=== PATIENT | female | born 1960 | race Caucasian/White ===

== ENCOUNTER → 2020-07-31 15:01 | Outpatient (BNVA) | payer BC, SELFPAY | PROVIDERS: Family Provider Nurse Practitioner Family; PCP Nurse Practitioner Family; Visit Provider Nurse Practitioner Family | DX: N39.3 Stress incontinence (female) (male) (principal); B37.3 Candidiasis of vulva and vagina | CPT/HCPCS: 81000 ==

== ENCOUNTER 2020-11-12 08:23 | Outpatient (CLI) | payer BC, SELFPAY ==
--- NOTE | 2020-11-12 08:27 | US_ITS ---
WS: [id number] ULTRASOUND ABDOMEN LIMITED CLINICAL INFORMATION: RUQ PAIN COMPARISON: None. FINDINGS: Liver Size: Normal. Craniocaudal length: 16.5 cm. Echogenicity: Normal. Surface nodularity: None. Mass (size and location): None. Normal hepatopedal Flow in the main portal vein. Bile ducts Intrahepatic ducts: Normal. Common bile duct diameter: 0.5 cm. Gallbladder Present Gallstones: Present Gallbladder sludge: Present Gallbladder wall thickening: None. Pericholecystic fluid: None. Sonographic Reilly sign: Absent. Pancreas Normal as visualized. Right kidney: Normal. Hydronephrosis: None. Size: 9.9 cm x 3.7 cm x 3.4 cm. Abdominal aorta and IVC Visualized portions are normal. Ascites: None. US/US abdomen limited [id number] IMPRESSION: 1. Normal liver. 2. Cholelithiasis with gallbladder sludge. No gallbladder wall thickening or p ericholecystic fluid. 3. Normal common bile duct. 4. No hydronephrosis in right kidney.
== END 2020-11-12 08:24 | disposition home or self-care (01) ==
LOC: RAD 08:24
PROVIDERS: PCP Family Medicine; Visit Provider Physician Assistant
DX: R10.11 Right upper quadrant pain (principal); K80.80 Other cholelithiasis without obstruction
CPT/HCPCS: 76705

== ENCOUNTER 2020-11-20 10:47 | Outpatient (CLI) | payer OTHER, SELFPAY ==
--- NOTE | 2020-11-20 10:52 | MM_ITS ---
WS: [id number] Bilateral screening digital mammogram, 11/20/2020 Clinical Data: SCREENING Comparison: 09/17/2019, 10/27/2016, 10/03/2015, 11/09/2004, 11/02/2004. Findings: The breast parenchymal pattern shows heterogeneous density No spiculated masses or clustered calcific ations are seen. There are no secondary signs of carcinoma. There is a mole marker on the left breast . MM/[place] [id number] Impression: 1. Negative bilateral mammogram unchanged. 2. Recommend annual screening mammograms. BIRADS: 1-Negative FOLLOW UP: 1 Year Follow-up The CAD work checker was used.
== END 2020-11-20 10:48 | disposition home or self-care (01) ==
PROVIDERS: PCP Family Medicine; Visit Provider Family Medicine
DX: Z12.31 Encounter for screening mammogram for malignant neoplasm of breast (principal)
CPT/HCPCS: 77067

== ENCOUNTER 2022-03-09 14:50 | Outpatient (CLI) | payer OTHER, SELFPAY ==
--- NOTE | 2022-03-09 15:20 | MM_ITS ---
WS: [id number] Bilateral screening 3D tomosynthesis digital mammogram, 03/09/2022 Clinical Data: SCREENING Comparison: 11/20/2020, 09/17/2019, 10/27/2016, 10/03/2015, 11/09/2004, 11/02/2004. Findings: The breast parenchymal pattern shows heterogeneous density. No spiculated masses or clustered calcif ications are seen. There are no secondary signs of carcinoma. MM/[place] [id number] Impression: 1. Negative bilateral mammogram unchanged. 2. Recommend annual screening mammograms. BIRADS: 1-Negative FOLLOW UP: 1 Year Follow-up The CAD construction checker was used.
== END 2022-03-09 14:51 | disposition home or self-care (01) ==
LOC: RAD 14:59
PROVIDERS: PCP Family Medicine; Visit Provider Family Medicine
DX: Z12.31 Encounter for screening mammogram for malignant neoplasm of breast (principal)
CPT/HCPCS: 77063; 77067

== ENCOUNTER → 2022-08-11 09:30 | Outpatient (BNVA) | payer OTHER, SELFPAY | PROVIDERS: PCP Family Medicine; Visit Provider Family Medicine | DX: Z00.00 Encounter for general adult medical examination without abnormal findings (principal) | CPT/HCPCS: 80053; 80061; 84443; 85025 ==

== ENCOUNTER → 2022-09-02 08:24 | Outpatient (BNVA) | payer OTHER, SELFPAY | PROVIDERS: PCP Family Medicine; Visit Provider Family Medicine | DX: Z00.00 Encounter for general adult medical examination without abnormal findings (principal); D72.829 Elevated white blood cell count, unspecified; E87.6 Hypokalemia; E03.9 Hypothyroidism, unspecified; I10 Essential (primary) hypertension | CPT/HCPCS: 80048; 85025 ==

== ENCOUNTER → 2022-10-21 08:46 | Outpatient (BNVA) | payer OTHER, SELFPAY | PROVIDERS: PCP Family Medicine; Visit Provider Orthopaedic Surgery | DX: M54.9 Dorsalgia, unspecified (principal) | CPT/HCPCS: 72110 ==

== ENCOUNTER 2022-11-04 06:00 | Outpatient (RCR) | payer OTHER, SELFPAY | END 2022-11-13 23:59 | disposition home or self-care (01) | LOC: TPT 06:00 | PROVIDERS: PCP Family Medicine; Visit Provider Orthopaedic Surgery | DX: M54.9 Dorsalgia, unspecified (principal) | CPT/HCPCS: 97110; 97161 ==

== ENCOUNTER 2022-11-14 06:00 | Outpatient (RCR) | payer OTHER, SELFPAY | END 2022-12-09 16:32 | disposition home or self-care (01) | LOC: TPT 06:00 | PROVIDERS: PCP Family Medicine; Visit Provider Orthopaedic Surgery | DX: M54.50 Low back pain, unspecified (principal) | CPT/HCPCS: 97110 ==

== ENCOUNTER 2023-03-22 10:29 | Outpatient (CLI) | payer OTHER, SELFPAY ==
--- NOTE | 2023-03-22 10:45 | MM_ITS ---
WS: [id number] BILATERAL SCREENING DIGITAL TOMOSYNTHESIS MAMMOGRAM WITH CAD HISTORY: SCREENING COMPARISON: 03/09/2022, 11/20/2020 Bilateral CC and MLO views with tomosynthesis and synthetic mammography submitted. Computer aided det ection analyzed. Breast composition: The breasts are heterogeneously dense, which may obscure small masses. No suspici ous masses, microcalcifications or architectural distortion. Asymmetries are stable. No distortion. MM/[place] [id number] IMPRESSION: BI-RADS: 2-Benign FOLLOW UP: 1 Year Follow-up
== END 2023-03-22 10:30 | disposition home or self-care (01) ==
LOC: RAD 10:32
PROVIDERS: PCP Family Medicine; Visit Provider Family Medicine
DX: Z12.31 Encounter for screening mammogram for malignant neoplasm of breast (principal)
CPT/HCPCS: 77063; 77067

== ENCOUNTER → 2023-04-12 11:37 | Outpatient (BNVA) | payer OTHER, SELFPAY | PROVIDERS: PCP Family Medicine; Visit Provider Orthopaedic Surgery | DX: Z01.818 Encounter for other preprocedural examination (principal) | CPT/HCPCS: 36415; 80053; 85025 ==

== ENCOUNTER → 2023-04-13 12:48 | Outpatient (BNVA) | payer OTHER, SELFPAY | PROVIDERS: PCP Family Medicine; Referring Provider Anesthesiology Pain Medicine; Visit Provider Specialist | DX: G56.03 Carpal tunnel syndrome, bilateral upper limbs (principal); M65.331 Trigger finger, right middle finger | CPT/HCPCS: 73110 ==

== ENCOUNTER 2023-05-06 05:41 | Day surgery (SDC) | payer OTHER, SELFPAY ==
[2023-04-29 08:40] VITALS: BMI 26.9
--- NOTE | 2023-04-29 13:21 | P.ANESASSM_ITS ---
Pre-Anesthetic Assessment Height/Weight: Height 1.57 m Weight 66.678 kg Operation Date: 05/06/23 07:00 Proposed Procedures p LEFT L4/5 Minimally Invasive Lumbar Decompression:15550,M48.062(Left) - Levon Wright DO Social No alcohol and No tobacco Airway Submandibular: within normal limits Cervical ROM: within normal limits Mallampati: Class II CV/HEM Hypertension Metabolic Thyroid Disease Anesthetic Plan ASA status: 2 Anesthesia: General Medications/Allergies Home Medications Medication Instructions Recorded Confirmed Last Taken Type hydrochlorothiazide 25 mg tablet 25 mg PO DAILY #90 tabs 08/11/22 04/29/23 04/29/23 Rx levothyroxine 75 mcg tablet 75 mcg PO DAILY #90 tabs 08/11/22 04/29/23 04/29/23 Rx (Synthroid) oxybutynin chloride 5 mg tablet 10 mg PO DAILY #180 tabs 08/11/22 04/29/23 04/29/23 Rx tramadol 50 mg tablet 50 mg PO Q4H PRN pain #60 tabs 08/11/22 04/29/23 Unknown Rx hydrocodone 5 mg-acetaminophen 325 1 tab PO Q8H PRN pain 1 month #30 09/02/22 04/29/23 04/26/23 Rx mg tablet tabs clobetasol 0.05 % topical ointment 1 applic topical BID 2 weeks #45 12/22/22 04/29/23 Unknown Rx grams hydrocortisone 2.5 % topical 1 applic topical BID 3 weeks 12/22/22 04/29/23 Unknown Rx ointment #28.35 grams mupirocin 2 % topical ointment 1 applic topical BID #22 grams 12/22/22 04/29/23 Unknown Rx triamcinolone acetonide 0.1 % 1 applic topical BID #80 grams 12/22/22 04/29/23 Unknown Rx topical ointment celecoxib 200 mg capsule (Celebrex) 200 mg PO DAILY pain #30 caps 03/23/23 04/29/23 04/20/23 Rx tizanidine 4 mg tablet 4 mg PO BID PRN muscle spasticity 03/23/23 04/29/23 04/29/23 Rx #60 tabs losartan 100 mg tablet 100 mg PO DAILY 04/29/23 04/29/23 04/29/23 History tacrolimus 0.1 % topical ointment 1 applic topical DAILY 04/29/23 04/29/23 Unknown History Allergies Allergy/AdvReac Type Severity Reaction Status Date / Time atorvastatin [From Lipitor] AdvReac Intermediate cramps Verified 04/27/23 10:36 [facility] Anesthesia Medical History (Updated 04/27/23 @ 12:55 by Dillan Moss NP) Fibromyalgia Hyperlipidemia Hypertension Hypothyroid Urinary, incontinence, stress female Surgical History History of cholecystectomy Hx of bladder repair surgery Hx of section Hx of colonoscopy (~2011) normal Hx of hysterectomy Social History Smoking and tobacco status: former smoker Quit status (tobacco): has quit using tobacco Year quit tobacco: 2001 Former quit date comment: PPD 2-3 days x 10yrs Second hand smoke exposure: No Alcohol intake: never Substance/Drug Use: never Lives independently: Yes Household members: spouse Marital status: Current occupational status: retired Current gender identity: Female Data Anesthesia Cardiac Studies: No Data to Display
[2023-05-06] VITALS (13 sets, daily range): BP systolic 120–142; BP diastolic 60–88; PULSE 68–81; RESP 14–18; TEMP 36.1–36.8; O2SAT 96–100
--- NOTE | 2023-05-06 | XR_ITS ---
WS: [id number] C-ARM RADIOGRAPHS LUMBAR SPINE; 3 IMAGES HISTORY: OR Pic. L4-5 decompression COMPARISON: None available. Intraoperative imaging during spinal decompression. Markers indicating the L4-5 level. XR/XR lumbar spine 1V [id number] IMPRESSION: Intraoperative imaging during spinal decompression.
[2023-05-06] MEDS: sodium chloride 0.9% 1,000 ML 30 ML IV (06:25)
--- NOTE | 2023-05-06 06:36 | W.PM.OPSUD ---
Surgery/Procedure H&P Update DATE OF PROCEDURE: May 06, 2023 DATE H&P PERFORMED: 04/12/23 H&P UPDATE INFORMATION: I have reviewed H&P completed within last 30 days, I have examined patient prior to procedure and No changes to prior documentation PREOP DIAGNOSIS: Lumbar radiculopathy PLANNED PROCEDURE: Operation Date: 05/06/23 07:00 Proposed Procedures p LEFT L4/5 Minimally Invasive Lumbar Decompression:87816,M48.062(Left) - Levon Wright DO
[2023-05-06] MEDS: ceFAZolin 2,000 MG in sodium chloride 0.9% (plus) 50 ML 100 MG IV (07:00)
[2023-05-06] MEDS: lidocaine-epi 2% 20 mL INJ 10 ML INJECTION (07:31)
--- NOTE | 2023-05-06 08:06 | PM.OP ---
Operative Report Date of procedure: May 06, 2023 Pre-op diagnosis: Preop Diagnosis Lumbar stenosis with neurogenic claudication Post-op diagnosis: same Procedure done: 1. L4/5 laminectomy with partial facetectomy Surgeon: Levon Wright Key Account Representative: none Estimated blood loss (mL): 5 Procedure: 1. L4/5 laminectomy with partial facetectomy Patient is brought to the operative suite. After undergoing anesthesia they are placed in the prone position. All areas of impingement are well padded. Patient is then prepped and draped in the normal sterile fashion. A skin incision is made over the L4/5 level. This is confirmed under c-arm guidance. A series of dilators are passed and the tubular retractor is docked on the L4 lamina. A bovie is used to clear the soft tissue off the lamina and the L 4/5 facet joint. A high speed brant is then used to perform the laminectomy and take down the medial aspect of the L. 4/5 Facet joint. A kerrison rongeure was then used to take down the remaining lamina and smooth the edge of the laminectomy up to the point where the ligamentum flavum attaches. Attention was then brought to the medial aspect of the facet joint. The remaining medial aspect of the superior and inferior aspect of the facet joint were taken down with the kerrison from the pedicle of L4 to L 540. The facet joint had significant hypertrophy. Attention was then brought to the Ligamentum Flavum. The ligament was taken down from the lamina of L4 to L5 and out medially to the remaining facet joint. The ligament was thick. The dura was then exposed. The dura was in good repair. The L4 nerve was then traced with a curette out the L4/5 foramen and found to be adequately decompressed. The L5 nerve was traced with a curette around the L5 pedicle. The lateral recess was opened with a kerrison helping to further decompress the L5 nerve. Wound is then irrigated copiously with saline and surgiflo is used to stop any bleeding. The tubular retractor is removed and the wound is closed with vicryl and monocryl suture. Glue is then used to protect the wound. A sterile dressing is then placed. Patient was then placed in the supine position and transferred to the PACU in stable condition.
--- NOTE | 2023-05-06 08:21 | SUR.PHASEI ---
RECEIVED PT FROM OR STAFF.AIRWAY PATENT VENTILATING WELL. ROM AND SENSATION ALL 4 EXTREMITIES. WARM BLANKETS APPLIED.
[2023-05-06] MEDS: fentaNYL 50 mcg/mL INJ 2mL IVP (08:35)
--- NOTE | 2023-05-06 08:58 | SUR.PHASEI ---
08:35 MEDICATED FOR PAIN. ACTIVE WARMING APPLIED. NSR ON MONITOR. 08:55 MODERATE RELIEF OF BACK PAIN. ROM AND SENSATION ALL 4 EXTREMITIES.
--- NOTE | 2023-05-06 09:05 | P.ANESUD_ITS ---
Pre-Anesthetic Update Pre-Anesthetic Assessment: Date of Surgery/Procedure: 05/06/23 Preop Lisa gnosis: Lumbar radiculopathy Proposed Procedure: Operation Date: 05/06/23 07:00 Proposed Procedures p LEFT L4/5 Minimally Invasive Lumbar Decompression:60110,M48.062(Left) - Levon Wright, DO Any changes to Pre-Anesthetic Assessment?: No Last Intake: Intake Last Liquid Date 05/05/23 Last Liquid Time 23:50 Last Solid Date 05/05/23 Last Solid Time 20:00 Vitals: Temperature 98.2 F 05/06/23 09:00 Temperature Source Temporal Artery S can 05/06/23 09:00 Pulse Rate 70 05/06/23 09:00 Respiratory Rate 14 05/06/23 09:00 Blood Pressure 138/73 05/06/23 09:00 Blood Pressure Estephania n 94 05/06/23 09:00 Pulse Oximetry 98 05/06/23 09:00 Oxygen Delivery Me thod Room Air 05/06/23 09:00 Exam: Pre-Anes Outpt Exam: alert, oriented x 3, clear to auscultation bilaterally and regular rate & rhythm Cardiac Studies: No Data to Display
[2023-05-06] MEDS: HYDROcodone-acetaminophen 5-325 mg Tablet 1 TAB PO (09:29)
--- NOTE | 2023-05-06 13:45 | ANE.PACU2 ---
Inpatient post-anesthesia follow up: Airway intact: Yes Vital signs: Temperature 98.2 F Pulse Rate 73 Respiratory Rate 14 Blood Pressure 120/70 Pulse Oximetry 97 Oxygen Delivery Me thod Room Air Oxygen Flow Rate Fraction of Inspir ed Oxygen Hydration adequate: Yes Nausea and vomiting: No Pain level: 3 Mental status: Baseline
== END 2023-05-06 09:50 | disposition home or self-care (01) ==
PROVIDERS: PCP Family Medicine; Visit Provider Orthopaedic Surgery
PROC: (CPT 63005; principal; 2023-05-06 07:00)
DX: M48.062 Spinal stenosis, lumbar region with neurogenic claudication (principal); I10 Essential (primary) hypertension; E03.9 Hypothyroidism, unspecified; E78.5 Hyperlipidemia, unspecified; Z87.891 Personal history of nicotine dependence
CPT/HCPCS: 63047; 72020; 76000; J0690; J1100; J1170; J2370; J2405; J2704; J2710; J3010; J3490; J7030

== ENCOUNTER → 2023-05-11 11:07 | Outpatient (BNVA) | payer OTHER, SELFPAY | PROVIDERS: PCP Family Medicine; Visit Provider Nurse Practitioner Family | DX: N39.0 Urinary tract infection, site not specified (principal) | CPT/HCPCS: 81003 ==

== ENCOUNTER → 2023-05-12 10:05 | Outpatient (BNVA) | payer OTHER, SELFPAY | PROVIDERS: PCP Family Medicine; Visit Provider Internal Medicine Rheumatology | DX: Z79.899 Other long term (current) drug therapy (principal); M19.90 Unspecified osteoarthritis, unspecified site; Z11.59 Encounter for screening for other viral diseases | CPT/HCPCS: 36415; 73130; 73630; 82306; 85651; 86140; 86200; 86431; 86480; 86704; 86803; 86812; 87340 ==

== ENCOUNTER → 2023-06-16 09:17 | Outpatient (BNVA) | payer OTHER, SELFPAY | PROVIDERS: PCP Family Medicine; Visit Provider Family Medicine | DX: Z01.818 Encounter for other preprocedural examination (principal) | CPT/HCPCS: 80048; 81000; 85025 ==

== ENCOUNTER 2023-06-24 06:09 | Day surgery (SDC) | payer OTHER, SELFPAY ==
[2023-06-23 08:42] VITALS: BMI 26.2
[2023-06-24] VITALS (8 sets, daily range): BP systolic 121–149; BP diastolic 68–97; PULSE 56–73; RESP 16–17; TEMP 36.1–36.6; O2SAT 96–100
[2023-06-24] MEDS: acetaminophen 1,000 MG/100 ML PIGGYBACK 400 MG IV (06:38)
[2023-06-24] MEDS: gabapentin 300 mg Capsule PO (06:40)
[2023-06-24] MEDS: CELEcoxib 200 mg Capsule 400 MG PO (06:40)
[2023-06-24] MEDS: sodium chloride 0.9% 1,000 ML 30 ML IV (06:49)
--- NOTE | 2023-06-24 07:06 | ANES.PREANE2 ---
Pre-Anesthetic Assessment Height/Weight: Height 1.57 m Weight 64.864 kg Temp Pulse Resp BP Pulse Ox O2 Del Method 98 F 71 17 126/79 98 Room Air 06/24/23 06:23 06/24/23 06:23 06/24/23 06:23 06/24/23 06:23 06/24/23 06:23 06/24/23 06:23 Preop Diagnosis: Right carpal tunnel, trigger long, thumb, and small finger Operation Date: 06/24/23 07:50 Proposed Procedures p RIGHT CARPAL TUNNEL RELEASE WITH THUMB, LITTLE FINGER, AND LONG FINGER TRIGGER FINGER RELEASE. [id number] 45999,M65.30,G56.00(Right) - Marilee Mayer MD s Trigger Finger Release(Right) - Marilee Mayer MD Familial anesthetic complications: None Was Beta Norris taken within 24 hours: N/A Was Clonidine taken within 24 hours: N/A Last intake: Intake Last Liquid Date 06/23/23 Last Liquid Time 22:00 Last Solid Date 06/23/23 Last Solid Time 20:00 Social No alcohol and No tobacco Exam alert, oriented x 3, clear to auscultation bilaterally and regular rate & rhythm Airway Mallampati: Class II Dentition: false CV/HEM Hypertension Metabolic Hyperlipidemia and Thyroid Disease [facility] [place] psoriatic athritis and psoriasis Anesthetic Plan ASA status: 3 Anesthesia: General Risk of > 500 ml blood loss (7ml/kg in children): No Medications/Allergies Home Medications Medication Instructions Recorded Confirmed Last Taken Type levothyroxine 75 mcg tablet 75 mcg PO DAILY #90 tabs 08/11/22 06/23/23 06/23/23 Rx (Synthroid) 0700 oxybutynin chloride 5 mg tablet 10 mg PO DAILY #180 tabs 08/11/22 06/23/23 06/23/23 Rx 0700 tramadol 50 mg tablet 50 mg PO Q4H PRN pain #60 tabs 08/11/22 06/23/23 06/23/23 Rx 0700 losartan 100 mg tablet 100 mg PO DAILY 04/29/23 06/23/23 06/23/23 History 0700 tacrolimus 0.1 % topical ointment 1 applic topical DAILY 04/29/23 06/23/23 05/05/23 History leflunomide 20 mg tablet 20 mg PO DAILY #30 tabs 05/12/23 06/23/23 06/23/23 Rx 0700 prednisone 20 mg tablet See Rx Instructions PO .COMPLEX 05/12/23 06/23/23 04/14/23 Rx PRN joint pain flare #30 tabs hydrocodone 5 mg-acetaminophen 325 1 - 2 tab PO .Q4-6H PRN pain 7 05/30/23 06/23/23 06/22/23 Rx mg tablet days #40 tabs potassium chloride 20 mEq 20 meq PO DAILY #2 tabs 06/20/23 06/23/23 06/23/23 Rx tablet,extended release 0700 clobetasol 0.05 % topical ointment 1 applic topical BID PRN 06/23/23 06/23/23 Unknown History itching/dryness hydrocortisone 2.5 % topical 1 applic topical BID PRN Itching 06/23/23 06/23/23 06/14/23 History ointment mupirocin 2 % topical ointment 1 applic topical BID PRN Itching 06/23/23 06/23/23 Unknown History triamcinolone acetonide 0.1 % 1 applic topical BID PRN DRYNESS 06/23/23 06/23/23 Unknown History topical ointment hydrochlorothiazide 25 mg tablet 25 mg PO DAILY 06/24/23 06/24/23 06/23/23 History 0700 Allergies Allergy/AdvReac Type Severity Reaction Status Date / Time atorvastatin [From Lipitor] AdvReac Intermediate cramps Verified 06/24/23 06:21 Current Medications Generic Name Dose Route Start Last Admin Trade Name Freq PRN Reason Stop Dose Admin Sodium Chloride 1,000 mls @ 30 mls/hr 06/24/23 06:15 06/24/23 06:49 Sodium Chloride 0.9% IV 06/25/23 06:14 30 mls/hr .Q24H TOMAS Administration PFSH Anesthesia Medical History Fibromyalgia High risk medication use Hyperlipidemia Hypertension Hypothyroid Immunization counseling Plaque psoriasis Psoriatic arthritis Urinary, incontinence, stress female Surgical History History of cholecystectomy Hx of bladder repair surgery Hx of section Hx of colonoscopy (~2011) normal Hx of hysterectomy Previous back surgery 05/06/2023 L4 L5 decompression Social History Smoking and tobacco status: former smoker Quit status (tobacco): has quit using tobacco Year quit tobacco: 2001 Former quit date comment: PPD 2-3 days x 10yrs Second hand smoke exposure: No Alcohol intake: never Substance/Drug Use: never Lives independently: Yes Household members: spouse Marital status: Current occupational status: retired Current gender identity: Female Data Anesthesia Cardiac Studies: No Data to Display
--- NOTE | 2023-06-24 07:16 | P.HPUD_ITS ---
Surgery/Procedure H&P Update DATE OF PROCEDURE: June 24, 2023 DATE H&P PERFORMED: 06/16/23 H&P UPDATE INFORMATION: I have reviewed H&P completed within last 30 days, I have examined patient prior to procedure, Changes to prior documentation as noted here and H&P is in [facility] [place] on date indicated PREOP DIAGNOSIS: Right carpal tunnel, trigger long, thumb, and ring finger PLANNED PROCEDURE: Operation Date: 06/24/23 07:50 Proposed Procedures p RIGHT CARPAL TUNNEL RELEASE WITH THUMB, RING FINGER, AND LONG FINGER TRIGGER FINGER RELEASE. 43612 42337,M65.30,G56.00(Right) - Marilee Mayer MD s Trigger Finger Release(Right) - Marilee Mayer MD Related Problem List Diagnoses (1) Trigger finger, right middle finger: (2) Acquired trigger finger of left ring finger: When seen in March, the patient did have symptoms in the small finger, however, these have transitioned over to be consistently at the base of the left ring finger. (3) Trigger finger of right thumb:
[2023-06-24] MEDS: ceFAZolin 2,000 MG in sodium chloride 0.9% (plus) 50 ML 100 MG IV (08:15)
[2023-06-24] MEDS: BUPivacaine 0.5% INJ 30 mL 20 ML INJECTION (08:42)
--- NOTE | 2023-06-24 09:45 | PM.OP ---
Operative Report Date of procedure: June 24, 2023 Pre-op diagnosis: Right carpal tunnel, trigger long, thumb, and ring finger Post-op diagnosis: Right carpal tunnel, trigger long, thumb, and ring finger Procedure done: Right carpal tunnel release with release of right thumb, long, and ring finger triggering Implants: None Pathology: none sent Surgeon: Marilee Mayer Double End Trimmer: [facility] operating room technicians Anesthesia: General (Per LMA, ASA 3) Estimated blood loss (mL): 5 Tourniquet time (min): 31 (At 250 mmHg) IV fluids (mL): 700 Urine output (mL): 0 (No Graham) Complications: None Findings: Significant tightness within the carpal canal and also at each of the A1 pulleys of the thumb, long, and ring fingers. Condition: stable Disposition: PACU (Then return to same-day surgery for discharge to home) Brief History: This 62-year-old woman presented to my office in March with complaints of bilateral hand and wrist pain as well as triggering of her long finger and thumb. At times, she described having to pry open the long finger. She had taken Celebrex for pain relief, but noted that it had been worsening. In the interim, she had surgery with Dr. Wright, and now, she presents for surgery to her right hand. After evaluation in the office and studies, the patient was found to have carpal tunnel syndrome along with her trigger fingers. When she was initially seen, she had triggering of the thumb and long finger, and she had pain at the base of the ring finger primarily, but at the present time, this is moved over to her ring finger, and she notes she has triggering in this finger as well as pain over the A1 bridget. After discussion, questions were answered, and the patient wished to proceed with operative intervention in the form of right carpal tunnel release and release of her triggering thumb long and ring fingers. Procedure: The patient was brought to the operating theater, and she was transferred to the operating room table. Patient had a general anesthetic per LMA, ASA 3 without issue. This was well-tolerated. The arm was exsanguinated, and the tourniquet was elevated to 250 mmHg for a total tourniquet time of 31 minutes. The patient was also given Ancef 2 g preoperatively. The arm was then prepped and draped with DuraPrep in usual fashion with the arm draped free. A surgical pause was performed. At the time, the surgical pause, we confirmed the site and side of surgery. We also confirmed the patient's identity, appropriate and timely administration of preoperative antibiotics and preoperative surgical markings. An incision was then made along the thenar crease. The incision crossed the wrist joint in a curvilinear fashion. Dissection continued through skin and soft tissues using a scalpel. The palmaris longus was identified along with the transverse carpal ligament. Each of these was released carefully to avoid injury to the median nerve. We were able to dissect gently into the carpal canal which was noted to be quite tight with significant compression across the median nerve. The nerve was visualized and was an hourglass shape. The canal was subsequently palpated to assure there was no bony encroachment upon the canal. There was a quite thickened fibrous tissue within the canal, and this was opened longitudinally as well. The canal was then palpated distally and proximally to assure that my small finger was passed easily without impingement. Finding this to be so, attention was directed to closure. The wound was irrigated with ropivacaine plain. It was then closed with 3-0 nylon in an interrupted mattress fashion. Following release of the carpal canal, attention was directed to the trigger fingers. An incision was made along the distal palmar crease beneath the long and ring fingers. Dissection continued through the skin to the subcutaneous tissues using a scalpel. Blunt dissection was then utilized to spread soft tissues to allow access to the A1 bridget of each finger. The A1 bridget was then incised longitudinally and sharply utilizing a scalpel. This was accomplished without difficulty and atraumatically. Once the A1 pulleys were released, the tendons were brought up out of the wound and evaluated. There were noted to be no gross masses on the tendon, but there was significant fluid around the tendons. We also released proximally as this was noted to be tight as well. Following release at the base of the long and ring fingers, attention was directed to the thumb, where an incision was made along the metacarpal phalangeal crease of the thumb. Once again, dissection continued through the skin to the subcutaneous tissues using a scalpel. Blunt dissection was again utilized to spread soft tissues and allow access to the thumb A1 bridget. It was then incised longitudinally using a scalpel as well. Proximal release was again accomplished. The tendons were brought up out of the wound and evaluated and found to have no abnormalities. They were then returned to normal position. The 2 incisions for release of triggering were then also irrigated with ropivacaine plain. Injection of the subcutaneous tissues was accomplished prior to closure. The wound was then closed with 3-0 nylon in an interrupted mattress type suture. Sterile dressings were then placed over all of the wounds consisting of Dermabond, OpSite, fluffed fluffs, sterile soft roll, and an Ray wrap. The tourniquet was released after 31 minutes. There were noted to be no complications. The patient will be discharged home to follow-up with me in the office. Related Problem List Diagnoses (1) Carpal tunnel syndrome on right: (2) Acquired trigger finger of left ring finger: (3) Trigger finger of right thumb: (4) Trigger finger, right middle finger:
[2023-06-24] MEDS: HYDROcodone-acetaminophen 5-325 mg Tablet 1 TAB PO (10:14)
--- NOTE | 2023-06-24 10:15 | ANE.PACU2 ---
Inpatient post-anesthesia follow up: Airway intact: Yes Vital signs: Temperature 98 F Pulse Rate 69 Respiratory Rate 17 Blood Pressure 149/80 Pulse Oximetry 97 Oxygen Delivery Me thod Room Air Oxygen Flow Rate 6 Fraction of Inspir ed Oxygen Hydration adequate: Yes Nausea and vomiting: No Pain level: 1 Mental status: Baseline
== END 2023-06-24 10:45 | disposition home or self-care (01) ==
PROVIDERS: PCP Family Medicine; Visit Provider Specialist
PROC: (CPT 64721; principal; 2023-06-24 07:40)
PROC: (CPT 26055; 2023-06-24 07:40)
DX: G56.01 Carpal tunnel syndrome, right upper limb (principal); M65.331 Trigger finger, right middle finger; M65.311 Trigger thumb, right thumb; M65.341 Trigger finger, right ring finger; I10 Essential (primary) hypertension; E78.5 Hyperlipidemia, unspecified; E03.9 Hypothyroidism, unspecified; Z79.899 Other long term (current) drug therapy; Z87.891 Personal history of nicotine dependence
CPT/HCPCS: 26055 ×3; 64721; J0131; J0690; J1100; J2250; J2405; J2704; J3010; J3490; J7030

== ENCOUNTER → 2023-08-02 08:14 | Outpatient (BNVA) | payer OTHER, SELFPAY | PROVIDERS: PCP Family Medicine; Visit Provider Orthopaedic Surgery | DX: Z98.890 Other specified postprocedural states (principal); M54.2 Cervicalgia | CPT/HCPCS: 72040; 72100 ==

== ENCOUNTER 2023-08-05 06:37 | Day surgery (SDC) | payer OTHER, SELFPAY ==
[2023-08-04 09:07] VITALS: BMI 25.2
[2023-08-05] VITALS (8 sets, daily range): BP systolic 93–140; BP diastolic 54–82; PULSE 57–71; RESP 13–20; TEMP 36–36.6; O2SAT 96–100
--- NOTE | 2023-08-05 07:11 | P.HPUD_ITS ---
Surgery/Procedure H&P Update DATE OF PROCEDURE: August 05, 2023 DATE H&P PERFORMED: 07/06/23 H&P UPDATE INFORMATION: I have reviewed H&P completed within last 30 days, I have examined patient prior to procedure, No changes to prior documentation and H&P is in [facility] [place] E[place] on date indicated PLANNED PROCEDURE: Operation Date: 08/05/23 08:15 Proposed Procedures p LEFT CARPAL TUNNEL SYNDROME 37188,G56.00(Left) - Marilee Mayer MD Related Problem List Diagnoses (1) Carpal tunnel syndrome, left:
[2023-08-05] MEDS: acetaminophen 1,000 MG/100 ML PIGGYBACK 400 MG IV (07:14)
--- NOTE | 2023-08-05 07:15 | P.ANESASSM_ITS ---
Pre-Anesthetic Assessment Height/Weight: Height 1.57 m Weight 62.596 kg Temp Pulse Resp BP Pulse Ox O2 Del Method 97.9 F 66 16 134/82 97 Room Air 08/05/23 06:59 08/05/23 06:59 08/05/23 06:59 08/05/23 06:59 08/05/23 06:59 08/05/23 07:02 Operation Date: 08/05/23 08:15 Proposed Procedures p LEFT CARPAL TUNNEL SYNDROME 88030,G56.00(Left) - Marilee Mayer MD Was Beta Norris taken within 24 hours: N/A Was Clonidine taken within 24 hours: N/A Social Tobacco Quit smoking years ago Exam alert, oriented x 3, clear to auscultation bilaterally and regular rate & rhythm Airway Submandibular: within normal limits Cervical ROM: within normal limits Mallampati: Class II Dentition: false History/ROS No significant history except as noted and No significant complaints CV/HEM Hypertension Metabolic Thyroid Disease [facility] [place] Fibromyalgia psoriatic arthritis Anesthetic Plan ASA status: 2 Anesthesia: Choice Risk of > 500 ml blood loss (7ml/kg in children): No Medications/Allergies Home Medications Medication Instructions Recorded Confirmed Last Taken Type levothyroxine 75 mcg tablet 75 mcg PO DAILY #90 tabs 08/11/22 08/04/23 08/04/23 Rx (Synthroid) tramadol 50 mg tablet 50 mg PO Q4H PRN pain #60 tabs 08/11/22 08/04/23 08/04/23 Rx losartan 100 mg tablet 100 mg PO DAILY 04/29/23 08/04/23 08/04/23 History tacrolimus 0.1 % topical ointment 1 applic topical DAILY 04/29/23 08/04/23 05/05/23 History prednisone 20 mg tablet See Rx Instructions PO .COMPLEX 05/12/23 08/04/23 04/14/23 Rx PRN joint pain flare #30 tabs potassium chloride 20 mEq 20 meq PO DAILY #2 tabs 06/20/23 08/04/23 08/04/23 Rx tablet,extended release clobetasol 0.05 % topical ointment 1 applic topical BID PRN 06/23/23 08/02/23 Unknown History itching/dryness hydrocortisone 2.5 % topical 1 applic topical BID PRN Itching 06/23/23 08/04/2308/04/23 History ointment mupirocin 2 % topical ointment 1 applic topical BID PRN Itching 06/23/23 08/04/23 08/04/23 History triamcinolone acetonide 0.1 % 1 applic topical BID PRN DRYNESS 06/23/23 08/04/23 Unknown History topical ointment hydrochlorothiazide 25 mg tablet 25 mg PO DAILY 06/24/23 08/04/23 08/04/23 History hydrocodone 5 mg-acetaminophen 325 1 - 2 tab PO .Q4-6H PRN pain 7 06/24/23 08/04/23 08/04/23 Rx mg tablet days #40 tabs leflunomide 20 mg tablet 20 mg PO DAILY #90 tabs 07/06/23 08/04/23 08/04/23 Rx oxybutynin chloride 5 mg tablet See Rx Instructions .Route 07/08/23 08/04/23 08/04/23 Rx .COMPLEX #180 tabs Allergies Allergy/AdvReac Type Severity Reaction Status Date / Time atorvastatin [From Lipitor] AdvReac Intermediate cramps Verified 08/04/23 09:03 [facility] Anesthesia Medical History Fibromyalgia High risk medication use Hyperlipidemia Hypertension Hypothyroid Immunization counseling Plaque psoriasis Psoriatic arthritis Urinary, incontinence, stress female Surgical History History of cholecystectomy Hx of bladder repair surgery Hx of section Hx of colonoscopy (~2011) normal Hx of hysterectomy Previous back surgery 05/06/2023 L4 L5 decompression Social History Smoking and tobacco status: former smoker Quit status (tobacco): has quit using tobacco Year quit tobacco: 2001 Former quit date comment: PPD 2-3 days x 10yrs Second hand smoke exposure: No Alcohol intake: never Substance/Drug Use: never Lives independently: Yes Household members: spouse Marital status: Current occupational status: retired Current gender identity: Female Data Anesthesia Cardiac Studies: No Data to Display
[2023-08-05] MEDS: CELEcoxib 200 mg Capsule 400 MG PO (07:17)
[2023-08-05] MEDS: sodium chloride 0.9% 1,000 ML 30 ML IV (07:19)
[2023-08-05] MEDS: ceFAZolin 2,000 MG in sodium chloride 0.9% (plus) 50 ML 100 MG IV (08:14)
[2023-08-05] MEDS: BUPivacaine 0.5% INJ 30 mL INJECTION (08:53)
--- NOTE | 2023-08-05 09:26 | P.OP_ITS ---
Operative Report Date of procedure: August 05, 2023 Pre-op diagnosis: Left carpal tunnel syndrome Post-op diagnosis: Left carpal tunnel syndrome Post-op findings: Significant compression across the carpal canal with discoloration and compression across the median nerve Procedure done: Left carpal tunnel release Surgeon: Marilee Mayer MD Anesthesia: General (Per LMA, ASA 2) Estimated blood loss (mL): 2 Tourniquet time (min): 17 (At 250 mmHg) IV fluids (mL): 500 Urine output (mL): 0 (No Graham) Complications: None Findings: Significant compression across the median nerve with purplish discoloration and hourglass deformity. Condition: stable Disposition: PACU (Then return to same-day surgery for discharge to home) Brief History: Annabella is an established 62 year old female who presents today for left carpal tunnel release. She has previously had right carpal tunnel release with trigger finger release as well. The patient did well following this and wishes to proceed with left carpal tunnel release. Risks and complications were discussed with her in clinic. Consents were signed again in the preop area as she had seen the nurse practitioner in clinic. Questions were answered. Consents were signed. Procedure: The patient was brought to the operating theater.? Patient was administered a general anesthesia per LMA, ASA 2.? The tourniquet was elevated to 250 mmHg for a total tourniquet time of 17 minutes. The patient was also given Ancef 2 g preoperatively. The arm was then prepped and draped with DuraPrep in usual fashion with the arm draped free. A surgical pause was performed. At the time, the surgical pause, we confirmed the site and side of surgery. We also confirmed the patient's identity, appropriate and timely administration of preoperative antibiotics and preoperative surgical markings. An incision was then made along the thenar crease. The incision crossed the wrist joint in a curvilinear fashion. Dissection continued through skin and soft tissues using a scalpel. The palmaris longus was identified along with the transverse carpal ligament. Each of these was released carefully to avoid injury to the median nerve. We were able to dissect gently into the carpal canal which was noted to be quite tight with significant compression across the median nerve. The nerve was visualized and was an hourglass shape. The canal was subsequently palpated to assure there was no bony encroachment upon the canal. There was a quite thickened fibrous tissue within the canal, and this was opened longitudinally as well. The canal was then palpated distally and proximally to assure that my small finger was passed easily without impingement. Finding this to be so, attention was directed to closure. The wound was irrigated with ropivacaine plain. It was then closed with 3-0 nylon in an interrupted mattress fashion. Sterile dressing was then placed consisting of Dermabond, OpSite, st erile soft roll, and an Ray wrap. The tourniquet was released after 17 minutes. There were no complications. There were no specimens. The procedure was well tolerated. Plan is the patient will be discharged home. Related Problem List Diagnoses (1) Carpal tunnel syndrome, left:
--- NOTE | 2023-08-05 13:47 | ANE.PACU2 ---
Inpatient post-anesthesia follow up: Airway intact: Yes Vital signs: Temperature 96.8 F Pulse Rate 62 Respiratory Rate 16 Blood Pressure 140/78 Pulse Oximetry 96 Oxygen Delivery Me thod Room Air Oxygen Flow Rate 6 Fraction of Inspir ed Oxygen Hydration adequate: Yes Nausea and vomiting: No Pain level: 1 Mental status: Baseline
== END 2023-08-05 10:15 | disposition home or self-care (01) ==
PROVIDERS: PCP Family Medicine; Visit Provider Specialist
PROC: (CPT 64721; principal; 2023-08-05 08:05)
DX: G56.02 Carpal tunnel syndrome, left upper limb (principal); I10 Essential (primary) hypertension; M79.7 Fibromyalgia; E78.5 Hyperlipidemia, unspecified; Z79.899 Other long term (current) drug therapy; E03.9 Hypothyroidism, unspecified; Z87.891 Personal history of nicotine dependence
CPT/HCPCS: 64721; J0131; J0690; J1100; J2405; J2704; J3010; J3490; J7030

== ENCOUNTER → 2023-09-05 11:33 | Outpatient (BNVA) | payer OTHER, SELFPAY | PROVIDERS: PCP Nurse Practitioner Family; Visit Provider Family Medicine | DX: Z01.818 Encounter for other preprocedural examination (principal) | CPT/HCPCS: 80053; 81000; 85025 ==

== ENCOUNTER 2023-09-19 08:57 | Observation (INO) | payer OTHER, SELFPAY ==
[2023-09-19] VITALS (21 sets, daily range): BP systolic 85–155; BP diastolic 47–85; PULSE 59–72; RESP 15–20; TEMP 36.1–36.9; O2SAT 92–99; BMI 25.4
--- NOTE | 2023-09-19 | XR_ITS ---
WS: [id number] Cervical spine, C ARM fluoroscopy views, 09/19/2023 Clinical Data: C4-C7 ACDF, OR PIC Comparison: Cervical spine, 08/02/2023 Findings: Dr. Wright performed an anterior cervical disc fusion C4-C7. Impression: Anterior cervical disc fusion.
[2023-09-19] MEDS: sodium chloride 0.9% 1,000 ML 30 ML IV (06:12)
--- NOTE | 2023-09-19 06:29 | W.PM.OPSUD ---
Surgery/Procedure H&P Update DATE OF PROCEDURE: September 19, 2023 DATE H&P PERFORMED: 09/05/23 H&P UPDATE INFORMATION: I have reviewed H&P completed within last 30 days, I have examined patient prior to procedure and No changes to prior documentation PREOP DIAGNOSIS: Cervical Spondylosis w/ myelopathy PLANNED PROCEDURE: Operation Date: 09/19/23 07:00 Proposed Procedures p C4/5,C5/6,C6/7,Anterior Cervical Discectomy & Fusion ACDF w/ Instrumentation w/ Allograft(Not Applicable) - Levon Wright DO
[2023-09-19] MEDS: ceFAZolin 2,000 MG in sodium chloride 0.9% (plus) 50 ML 100 MG IV ×3 (07:00→23:46)
[2023-09-19] MEDS: lidocaine-epi 1% PF 1:200,000 30 mL SDV INJECTION (08:31)
--- NOTE | 2023-09-19 08:36 | P.ANESASSM_ITS ---
Pre-Anesthetic Assessment Height/Weight: Height 1.55 m Weight 61.235 kg Temp Pulse Resp BP Pulse Ox O2 Del Method 97.1 F L 70 16 121/67 96 Room Air 09/19/23 06:00 09/19/23 06:00 09/19/23 06:00 09/19/23 06:00 09/19/23 06:00 09/19/23 06:00 Preop Diagnosis: Cervical Spondylosis w/ myelopathy Operation Date: 09/19/23 07:00 Proposed Procedures p C4/5,C5/6,C6/7,Anterior Cervical Discectomy & Fusion ACDF w/ Instrumentation w/ Allograft(Not Applicable) - Levon Wright, DO Familial anesthetic complications: none Was Beta Norris taken within 24 hours: N/A Was Clonidine taken within 24 hours: N/A Last intake: Intake Last Liquid Date 09/18/23 Last Liquid Time 23:50 Last Solid Date 09/18/23 Last Solid Time 20:30 Exam alert, oriented x 3, clear to auscultation bilaterally and regular rate & rhythm Airway Submandibular: within normal limits Cervical ROM: within normal limits Mallampati: Class II Dentition: full CV/HEM Hypertension Metabolic Thyroid Disease Musc/skel Lower Back Pain and Osteoarthritis/DJD Anesthetic Plan ASA status: 3 Anesthesia: General Medications/Allergies Home Medications Medication Instructions Recorded Confirmed Last Taken Type tramadol 50 mg tablet 50 mg PO Q4H PRN pain #60 tabs 08/11/22 09/16/23 08/04/23 Rx losartan 100 mg tablet 100 mg PO DAILY 04/29/23 09/19/23 09/19/23 History tacrolimus 0.1 % topical ointment 1 applic topical DAILY 04/29/23 09/16/23 05/05/23 History prednisone 20 mg tablet See Rx Instructions PO .COMPLEX 05/12/23 09/16/23 04/14/23 Rx PRN joint pain flare #30 tabs clobetasol 0.05 % topical ointment 1 applic topical BID PRN 06/23/23 09/16/23 Unknown History itching/dryness hydrocortisone 2.5 % topical 1 applic topical BID PRN Itching 06/23/23 09/16/23 08/04/23 History ointment mupirocin 2 % topical ointment 1 applic topical BID PRN Itching 0809/16/23 08/04/23 History triamcinolone acetonide 0.1 % 1 applic topical BID PRN DRYNESS 06/23/23 09/16/23 Unknown History topical ointment hydrochlorothiazide 25 mg tablet 25 mg PO DAILY 06/24/23 09/19/23 09/18/23 History hydrocodone 5 mg-acetaminophen 325 1 - 2 tab PO .Q4-6H PRN pain 7 06/24/23 09/16/23 08/04/23 Rx mg tablet days #40 tabs thyroid (pork) 15 mg tablet (MEDICAL MASSAGE THERAPIST 15 mg PO DAILY 09/05/23 09/19/23 09/19/23 History Thyroid) thyroid (pork) 30 mg tablet (MEDICAL MASSAGE THERAPIST 30 mg PO DAILY 09/05/23 09/19/23 09/19/23 History Thyroid) leflunomide 20 mg tablet 20 mg PO DAILY #90 tabs 09/07/23 09/19/23 09/18/23 Rx Bone growth stimulator #1 ea 09/09/23 09/16/23 Unknown Rx Bone growth stimulator #1 ea 09/09/23 09/16/23 Unknown Rx oxybutynin chloride 10 mg 10 mg PO DAILY 09/16/23 09/19/23 09/18/23 History tablet,extended release 24 hr potassium 99 mg tablet 99 mg PO DAILY 09/16/23 09/19/23 09/18/23 History Allergies Allergy/AdvReac Type Severity Reaction Status Date / Time atorvastatin [From Lipitor] AdvReac Intermediate cramps Verified 09/19/23 05:55 Current Medications Generic Name Dose Route Start Last Admin Trade Name Freq PRN Reason Stop Dose Admin Sodium Chloride 1,000 mls @ 30 mls/hr 09/19/23 06:00 09/19/23 08:31 Sodium Chloride 0.9% IV 09/20/23 05:59 Infused .Q24H TOMAS Infusion PFSH Anesthesia Medical History Fibromyalgia High risk medication use Hyperlipidemia Hypertension Hypothyroid Immunization counseling Plaque psoriasis Psoriatic arthritis Urinary, incontinence, stress female Surgical History History of cholecystectomy Hx of bladder repair surgery Hx of section Hx of colonoscopy (~2011) normal Hx of hysterectomy Previous back surgery 05/06/2023 L4 L5 decompression Social History Smoking and tobacco/nicotine status: former use of tobacco/nicotine Quit status (tobacco/nicotine): has quit using Year quit tobacco: 2001 Former quit date comment: PPD 2-3 days x 10yrs Second hand smoke exposure: No Alcohol intake: never Substance/Drug Use: never Lives independently: Yes Household members: spouse Marital status: Current occupational status: retired Current gender identity: Female Data Anesthesia Cardiac Studies: No Data to Display
--- NOTE | 2023-09-19 08:49 | P.OP_ITS ---
Operative Report Date of procedure: September 19, 2023 Pre-op diagnosis: Cervical spondylosis with myelopathy Post-op diagnosis: same Procedure done: 1. Anterior diskectomy C4/5 2. Anterior diskectomy C5/6 3. Anterior discectomy C6/7 4. Insertion of cage C4/5 5. Insertion of cage C5/6 6. Insertion of Cage C6/7 7. Instrumentation with anterior plate from C4-C7 8. Use of allograft Surgeon: Levon Wright DO [employer] Cook: Jerman Munroe [employer] Cook: The surgical processor, Jerman Munroe, SHANNON was needed for his expertise under the microscope. He was important and necessary throughout the procedure to complete in a safe and timely manner. He assisted with patient positioning prepping and draping tissue retraction suctioning of the operative field protection of the dural sac and tissue closure Estimated blood loss (mL): 25 Procedure: 1. Anterior diskectomy C4/5 2. Anterior diskectomy C5/6 3. Anterior discectomy C6/7 4. Insertion of cage C4/5 5. Insertion of cage C5/6 6. Insertion of Cage C6/7 7. Instrumentation with anterior plate from C4-C7 8. Use of allograft The patient was taken to the operating room, where he underwent general endotracheal anesthesia without complications. He was then positioned supine on the operating table, and all areas of impingement were well padded. The arms were carefully padded and tucked at his sides. A roll was placed between the shoulder blades.. An x-ray was done to determine the appropriate level for the skin incision. The entire neck was then sterilely prepped and draped in the usual fashion. Neuromonitoring was attached prior to prepping. A transverse skin incision was made and carried down to the platysma muscle. This was then split in line with its fibers. Blunt dissection was carried down medial to the carotid sheath and lateral to the trachea and esophagus until the anterior cervical spine was visualized. A needle was placed into a disc and an x-ray was done to determine its location. The longus colli muscles were then elevated bilaterally with the electrocautery unit. Self-retaining retractors were placed deep to the longus colli muscle. Attention was brought to the C4/5 level that was confirmed on x-ray. A caspar pin was placed into the C4 vertebrae and the C5 vertebrae. The disk space was then distracted. The microscope was then brought in. A radical anterior discectomies were performed at C4/5. This included complete removal of the anterior annulus, nucleus, and posterior annulus. The posterior longitudinal ligament was removed as were the posterior osteophytes. Foraminotomies were then accomplished bilaterally. This was done using a high speed brant, kerrison rongeurs and curretes Once all of this was accomplished, the curved currette was used to check for any residual compression. The central canal was wide open as were the foramen. A high-speed bur was used to remove the cartilaginous endplates above and below the interspace. Bleeding cancellous bone was exposed. The disc space were measured and appropriate size cage were placed sterilely onto the field. Allograft graft was packed into the cages. The cage was then placed and there was good juxtaposition against the bleeding decorticated surfaces and good distraction of each interspace. Attention was brought to the next interspace. The Kendrick pins were removed. Bone wax was used to prevent any bleeding from occurring at the pin sites. Attention was brought to the C5/6 level that was confirmed on x-ray. A caspar pin was placed into the C5 vertebrae and the C6 vertebrae. The disk space was then distracted. The microscope was then brought in. A radical anterior discectomies were performed at C5/6. This included complete removal of the anterior annulus, nucleus, and posterior annulus. The posterior longitudinal ligament was removed as were the posterior osteophytes. Foraminotomies were then accomplished bilaterally. This was done using a high speed brant, kerrison rongeurs and curretes Once all of this was accomplished, the curved currette was used to check for any residual compression. The central canal was wide open as were the foramen. A high-speed bur was used to remove the cartilaginous endplates above and below the interspace. Bleeding cancellous bone was exposed. The disc space were measured and appropriate size cage were placed sterilely onto the field. Allograft graft was packed into the cages. The cage was then placed and there was good juxtaposition against the bleeding decorticated surfaces and good distraction of each interspace. Attention was brought to the next interspace. The Kendrick pins were removed. Bone wax was used to prevent any bleeding from occurring at the pin sites. Attention was brought to the C6/7 level that was confirmed on x-ray. A caspar pin was placed into the C6 vertebrae and the C7 vertebrae. The disk space was then distracted. The microscope was then brought in. A radical anterior discectomies were performed at C6/7. This included complete removal of the anterior annulus, nucleus, and posterior annulus. The posterior longitudinal ligament was removed as were the posterior osteophytes. Foraminotomies were then accomplished bilaterally. This was done using a high speed brant, kerrison rongeurs and curretes Once all of this was accomplished, the curved currette was used to check for any residual compression. The central canal was wide open as were the foramen. A high-speed bur was used to remove the cartilaginous endplates above and below the interspace. Bleeding cancellous bone was exposed. The disc space were measured and appropriate size cage were placed sterilely onto the field. Allograft graft was packed into the cages. The cage was then placed and there was good juxtaposition against the bleeding decorticated surfaces and good distraction of each interspace. Attention was brought to the next interspace. The Kendrick pins were removed. Bone wax was used to prevent any bleeding from occurring at the pin sites. The appropriate size anterior cervical locking plate was chosen and bent into gentle lordosis. Two screws were then placed into each of the vertebral bodies at []. There was excellent purchase. A final x-ray was done confirming good position of the hardware and Cages. The locking screws were then applied, also with excellent purchase. Following a final copious irrigation, there was good hemostasis and no dural leaks. The carotid pulse was strong. The wounds were then closed in layers using 2-0 Vicryl suture for the platysma muscle, 2-0 Vicryl suture for the subcutaneous tissue, and 4-0 monocryl suture in a subcuticular skin closure. Glue was placed followed by application of a sterile dressing. The drain was hooked to bulb suction. A soft collar was applied. The patient was then carefully returned to the supine position on his hospital bed where he was reversed and extubated and taken to the recovery room having tolerated the procedure well.
[2023-09-19] MEDS: lactated ringers 1,000 ML 90 ML IV ×2 (10:17→21:53)
[2023-09-19] MEDS: ketorolac 30 mg/mL INJ IVP ×2 (10:18→22:13)
[2023-09-19] MEDS: HYDROcodone-acetaminophen 10-325 mg Tablet PO ×4 (10:18→23:32)
[2023-09-19] MEDS: docusate sodium 100 mg Capsule PO ×2 (10:57→17:35)
--- NOTE | 2023-09-19 16:09 | ANE.PACU2 ---
Inpatient post-anesthesia follow up: Airway intact: Yes Vital signs: Temperature 97.8 F Pulse Rate 70 Respiratory Rate 16 Blood Pressure 151/85 Pulse Oximetry 98 Oxygen Delivery Me thod Nasal Cannula Oxygen Flow Rate 2 Fraction of Inspir ed Oxygen Hydration adequate: Yes Nausea and vomiting: No Pain level: 3 Mental status: Baseline
--- NOTE | 2023-09-19 17:00 | PC.NURSE ---
patients home potassium and leflunomide sent to pharmacy via tube station.
[2023-09-19] MEDS: morphine 4 mg/mL SDV 1 mL 2 MG IVP (23:45)
[2023-09-20 03:42] VITALS: BP 117/65; PULSE 73; RESP 16; TEMP 36.6; O2SAT 94
[2023-09-20] MEDS: HYDROcodone-acetaminophen 10-325 mg Tablet PO ×2 (04:14→08:23)
[2023-09-20] MEDS: ondansetron 2 mg/ML SDV 2 mL 4 MG IVP (04:24)
[2023-09-20] MEDS: ceFAZolin 2,000 MG in sodium chloride 0.9% (plus) 50 ML 100 MG IV (06:39)
--- NOTE | 2023-09-20 07:06 | P.PN_ITS ---
Subjective Subjective: POD 1 Patient resting comfortably. Reports mild neck pain arm pain has improved. Mild swallowing discomfort. Denies voice changes. Denies headaches, shortness of breath, chest pain. Vitals/I&O/Wt Last Vital Signs Temp 97.9 F 09/20/23 03:42 Pulse 73 09/20/23 03:42 Resp 16 09/20/23 03:42 BP 117/65 09/20/23 03:42 Pulse Ox 94 09/20/23 03:42 O2 Del Method Room Air 09/20/23 03:42 O2 Flow Rate 2 09/19/23 15:23 09/19/23 09/20/23 09/20/23 22:59 06:59 14:59 Intake Total 1290 / 3120 50 / 3170 Output Total 255 / 260 20 / 280 Balance 1035 / 2860 30 / 2890 Weight last 48 hrs Weight 135 lb Physical Exam Narrative: Patient is alert and oriented x3 with a good general appearance normal mood and affect. Nontender with palpation about the incisional site. Incision appears to be Clean and dry with Hemovac intact without signs of erythema or drainage. No signs of infection. Good motor strength throughout both upper extremities. Appears to fire in all motor groups with 5/5 strength. Hands are warm good cap refill in all digits. Normal sensation to light touch in all dermatomal areas. A&P Assessment and plan (1) Status post cervical spinal fusion: Discontinue Hemovac drain. Discharge home later this morning. We will see her back in the office in 1 week's time for wound check. Continue incentive spirometry at home. Discharged with hydrocodone, Zofran, Colace. Continue Gaston J collar. Attestations Medical Necessity Statement*: Discharge home later this morning after Hemovac drain discontinued Coding Level of Care Code Acute Code for Chg Fwd Diagnoses Status post cervical spinal fusion Z98.1
[2023-09-20 07:41] VITALS: BP 135/70; PULSE 70; RESP 16; TEMP 36.5; O2SAT 94
[2023-09-20] MEDS: oxybutynin chloride XL 5 MG TABLET 10 MG PO (08:24)
[2023-09-20 08:25] VITALS: BP 135/70
[2023-09-20] MEDS: NON-FORMULARY MEDICATION (Potassium 99 mg Tablet) 99 EACH PO (08:25)
[2023-09-20] MEDS: docusate sodium 100 mg Capsule PO (08:25)
[2023-09-20] MEDS: hydroCHLOROthiazide 25 mg Tablet PO (08:25)
[2023-09-20] MEDS: losartan 50 mg Tablet 100 MG PO (08:25)
[2023-09-20] MEDS: NON-FORMULARY MEDICATION (Leflunomide 20 mg tablet) 20 EACH PO (08:26)
--- NOTE | 2023-09-20 10:04 | PC.CHAP ---
Pastoral Care Encounter/Spiritual Assessment Type of Contact [] Declined quick print operator visit [] Patient/Family/Request visit [] Outpatient visit [] Follow-up visit [] Physician referral [] Code/Alert [x] Routine visit [] Staff referral [] Actively dying [] Patient sleeping [x] Family support [] [] Out of room [] Palliative care [] [] Receiving care in room [] Pre-surgical visit [] Trauma [] Long length of stay [] ICU visit [] Other: Relational/Emotional Strength [x] Patient feels connected with others/family/visitors/staff [] Distress [] Loneliness/isolation [] Abandonment Spirituality of Patient [x] Person of Yenny [] Attends Buddhist of their Yenny [x] Believes in Prayer [] Reads Bible or Church materials [] There are Spiritual issues to be addressed Professional Poker Player Interventions [x] Prayer [x] Active listening [] Non-anxious presence [x] Spiritual/emotional support [] Crisis/trauma care [] Spiritual counseling [] Bereavement support [] Provided bereavement packet [] Provided Bible/devotional materials [] Provided toy/stuffed animal, coloring book to patient or family member [] Provided Communion [] Anointing/Munith [] Salvation [x] Completed spiritual assessment [] Other: Impact on Illness or Injury [] Angry [] Fearful [] Anxious [] Often cries [] Exhaustion [] Unable to work [] Unable to attend zoroastrianism [] Unable to walk/stand [] Unable to read [] Unable to drive [] Unable to eat/drink [] Unable to sleep [] Unable to be with family [] Patient intubated [] Other: Summary Time spent with patient 5 min
[2023-09-20 11:22] VITALS: BP 135/70
== END 2023-09-20 11:24 | disposition home or self-care (01) ==
LOC: MEDSURG 08:58
PROVIDERS: Admitting Provider Orthopaedic Surgery; PCP Nurse Practitioner Family; Visit Provider Orthopaedic Surgery
PROC: 0RB30ZZ Excision of Cervical Vertebral Disc, Open Approach (ICD-10-PCS; CPT 22551; principal; 2023-09-19 07:00)
DX: M47.12 Other spondylosis with myelopathy, cervical region (principal); I10 Essential (primary) hypertension; M79.7 Fibromyalgia; Z87.891 Personal history of nicotine dependence; E03.9 Hypothyroidism, unspecified
CPT/HCPCS: 20930; 22551; 22552 ×2; 22846; 22853 ×3; 72040; 76000; 97110; 97161; C1713; C1763; C9359; G0378; J0690; J1100; J1885; J2250; J2270; J2405; J2704; J3010; J3490; J7030; J7120

== ENCOUNTER → 2023-11-03 14:11 | Outpatient (BNVA) | payer OTHER, SELFPAY | PROVIDERS: PCP Nurse Practitioner Family; Visit Provider Orthopaedic Surgery | DX: Z98.1 Arthrodesis status (principal); Z47.89 Encounter for other orthopedic aftercare | CPT/HCPCS: 72040 ==

== ENCOUNTER → 2023-12-15 13:47 | Outpatient (BNVA) | payer OTHER, SELFPAY | PROVIDERS: PCP Nurse Practitioner Family; Visit Provider Orthopaedic Surgery | DX: Z98.1 Arthrodesis status (principal); Z47.89 Encounter for other orthopedic aftercare | CPT/HCPCS: 72040 ==

== ENCOUNTER → 2023-12-21 15:34 | Outpatient (BNVA) | payer OTHER, SELFPAY | PROVIDERS: PCP Nurse Practitioner Family; Visit Provider Internal Medicine Rheumatology | DX: Z79.899 Other long term (current) drug therapy (principal); L40.50 Arthropathic psoriasis, unspecified; L40.0 Psoriasis vulgaris; Z71.85 Encounter for immunization safety counseling | CPT/HCPCS: 36415; 80076; 82565; 85025; 86140 ==

== ENCOUNTER → 2024-03-15 08:04 | Outpatient (BNVA) | payer OTHER, SELFPAY | PROVIDERS: PCP Nurse Practitioner Family; Visit Provider Orthopaedic Surgery | DX: Z98.1 Arthrodesis status (principal) | CPT/HCPCS: 72040 ==

== ENCOUNTER 2024-03-23 07:43 | Outpatient (CLI) | payer OTHER, SELFPAY ==
--- NOTE | 2024-03-23 07:55 | MM_ITS ---
WS: [id number] BILATERAL SCREENING DIGITAL TOMOSYNTHESIS MAMMOGRAM WITH CAD HISTORY: SCREENING COMPARISON: None available. Bilateral CC and MLO views with tomosynthesis and synthetic mammography submitted. Computer aided det ection analyzed. Breast composition: The breasts are heterogeneously dense, which may obscure small masses. No suspici ous masses, microcalcifications or architectural distortion. Scattered asymmetries are stable since 2 019 within each breast. MM/[place] [id number] IMPRESSION: BI-RADS: 2-Benign FOLLOW UP: 1 Year Follow-up
== END 2024-03-23 07:44 | disposition home or self-care (01) ==
LOC: RAD 07:45
PROVIDERS: PCP Nurse Practitioner Family; Visit Provider Nurse Practitioner Family
DX: Z12.31 Encounter for screening mammogram for malignant neoplasm of breast (principal)
CPT/HCPCS: 77063; 77067

== ENCOUNTER → 2024-04-18 14:20 | Outpatient (BNVA) | payer OTHER, SELFPAY | PROVIDERS: PCP Nurse Practitioner Family; Visit Provider Internal Medicine Rheumatology | DX: Z79.899 Other long term (current) drug therapy (principal); L40.50 Arthropathic psoriasis, unspecified; L40.0 Psoriasis vulgaris; Z71.85 Encounter for immunization safety counseling | CPT/HCPCS: 36415; 80076; 82565; 85025; 86140 ==

== ENCOUNTER 2024-07-19 09:56 | Outpatient (CLI) | payer OTHER, SELFPAY ==
[2024-07-19 10:31] LABS: Basophils # 0.1 10^3/uL (0.0-0.1); Basophils % 2.1 %; Eosinophils % 0.6 %; Hematocrit 35.9 % (36-47); Lymphocytes # 1.9 10^3/uL (0.8-4.8); Lymphocytes % 36.5 %; Mean Corpuscular HGB Conc 33.4 g/dL (30-55); Mean Corpuscular Hemoglobin 28.2 pg (27-33); Mean Corpuscular Volume 84.3 fl (85-98); Mean Platelet Volume 9.6 fL (7.4-10.4); Monocytes # 0.5 10^3/uL (0.2-0.9); Monocytes % 9.8 %; Neutrophils # 2.65 10^3/uL (1.8-7.7); Neutrophils % 50.8 %; Nucleated Red Blood Cells % 0 %; Platelet Count 367 10^3/cmm (157-399); Red Blood Count 4.26 10^6/uL (3.85-5.65); Red Cell Distribution Width 14.6 % (12.1-15.1); White Blood Count 5.21 10^3/uL (3.29-11.43)
[2024-07-19 10:51] LABS: Alanine Aminotransferase 22 U/L (0-33); Albumin Level 4.2 g/dL (3.5-5.2); Alkaline Phosphatase 108 U/L (35-105); Aspartate Amino Transferase 23 U/L (0-32); Globulin 2.9 g/dL (1.3-4.6); Glomerular Filtration Rate 84.2 mL/min (90-130); Total Bilirubin 0.3 mg/dL (0.15-1.2); Total Protein 7.1 g/dL (6.6-8.7)
== END 2024-07-19 09:57 | disposition home or self-care (01) ==
LOC: LAB 09:58
PROVIDERS: PCP Nurse Practitioner Family; Visit Provider Internal Medicine Rheumatology
DX: Z79.899 Other long term (current) drug therapy (principal); L40.50 Arthropathic psoriasis, unspecified
CPT/HCPCS: 36415; 80076; 82565; 85025; 86140

== ENCOUNTER → 2024-09-11 08:39 | Outpatient (BNVA) | payer OTHER, SELFPAY | PROVIDERS: PCP Nurse Practitioner Family; Visit Provider Orthopaedic Surgery | DX: Z98.1 Arthrodesis status (principal) | CPT/HCPCS: 72040 ==

== ENCOUNTER → 2024-11-22 13:59 | Outpatient (BNVA) | payer OTHER, SELFPAY | PROVIDERS: PCP Nurse Practitioner Family; Visit Provider Internal Medicine Rheumatology | DX: Z79.899 Other long term (current) drug therapy (principal); L40.50 Arthropathic psoriasis, unspecified | CPT/HCPCS: 36415; 80076; 82565; 85025; 85651; 86140 ==

== ENCOUNTER 2025-03-13 08:42 | Outpatient (CLI) | payer MEDICARE, OTHER, SELFPAY ==
[2025-03-13 09:02] LABS: Basophils # 0.1 10^3/uL (0.0-0.1); Basophils % 1.1 %; Eosinophils # 0.4 10^3/uL (0.0-0.8); Lymphocytes % 33.1 %; Mean Corpuscular HGB Conc 32.6 g/dL (30-55); Mean Corpuscular Hemoglobin 26.9 pg (27-33); Mean Corpuscular Volume 82.5 fl (85-98); Mean Platelet Volume 9.8 fL (7.4-10.4); Monocytes # 0.7 10^3/uL (0.2-0.9); Monocytes % 10.7 %; Neutrophils # 2.96 10^3/uL (1.8-7.7); Neutrophils % 47.9 %; Nucleated Red Blood Cells % 0 %; Platelet Count 381 10^3/cmm (157-399); Red Blood Count 4.24 10^6/uL (3.85-5.65); Red Cell Distribution Width 14.4 % (12.1-15.1); White Blood Count 6.17 10^3/uL (3.29-11.43)
[2025-03-13 09:17] LABS: Erythrocyte Sedimentation Rate 23 mm/hr (0-15)
[2025-03-13 09:27] LABS: Alanine Aminotransferase 15 U/L (0-33); Alkaline Phosphatase 136 U/L (35-105); Aspartate Amino Transferase 22 U/L (0-32); C Reactive Protein 5.8 mg/L (0.0-4.9); Globulin 3.3 g/dL (1.3-4.6); Glomerular Filtration Rate 62.8 mL/min (90-130); Total Bilirubin 0.2 mg/dL (0.15-1.2); Total Protein 7.3 g/dL (6.6-8.7)
== END 2025-03-13 08:43 | disposition home or self-care (01) ==
PROVIDERS: PCP Nurse Practitioner Family; Visit Provider Internal Medicine Rheumatology
DX: B35.1 Tinea unguium (principal); D22.5 Melanocytic nevi of trunk; L57.8 Other skin changes due to chronic exposure to nonionizing radiation; X32.XXXA Exposure to sunlight, initial encounter; L81.4 Other melanin hyperpigmentation; L82.1 Other seborrheic keratosis; Z08 Encounter for follow-up examination after completed treatment for malignant neoplasm; Z85.828 Personal history of other malignant neoplasm of skin; Z79.899 Other long term (current) drug therapy; L40.50 Arthropathic psoriasis, unspecified
CPT/HCPCS: 36415; 80076; 82565; 85025; 85651; 86140; 99214

== ENCOUNTER → 2025-05-21 13:50 | Outpatient (BNVA) | payer MEDICARE, OTHER, SELFPAY | PROVIDERS: PCP Nurse Practitioner Family; Visit Provider Internal Medicine Rheumatology | DX: Z79.899 Other long term (current) drug therapy (principal); M81.0 Age-related osteoporosis without current pathological fracture; L40.50 Arthropathic psoriasis, unspecified; L40.0 Psoriasis vulgaris; Z71.85 Encounter for immunization safety counseling | CPT/HCPCS: 99214 ==

== ENCOUNTER 2025-05-24 14:06 | Outpatient (CLI) | payer MEDICARE, OTHER, SELFPAY ==
--- NOTE | 2025-05-24 14:13 | MM_ITS ---
WS: [id number] BILATERAL 3D TOMOSYNTHESIS DIGITAL SCREENING MAMMOGRAPHY WITH CAD CLINICAL INFORMATION: SCREEN HISTORY: Screening mammogram. No current complaints. COMPARISON: 2023 TECHNIQUE: Bilateral CC and MLO views. FINDINGS: The breasts are composed of heterogeneous fibroglandular density tissue, which can limit the detection of small underlying mass lesions. No suspicious mass, asymmetry, calcifications, or architectural distortion. No evidence of malignancy. MM/MM scr tomosynthesis [id number] IMPRESSION: DENSITY: The breasts are heterogeneously dense, which may obscure small masses. BI-RADS: 1 - Negative FOLLOW UP: 1 Year Follow-up Recommend return to annual screening mammography.
--- NOTE | 2025-05-24 15:00 | XR_ITS ---
WS: [id number] SCREENING DEXA SCAN [employer] CLINICAL INFORMATION: M81.0 - Age-related osteoporosis without current patholog... COMPARISON: None. FINDINGS: The L1-L4 bone mineral density measures 1.459 g/cm2. This corresponds to a T score score of 2.3 and Z score of 3.9. Left femoral neck bone mineral density measures 1.151 g/cm2. This corresponds to a T score of 1.1 and Z score of 2.3. Right femoral neck bone mineral density measures 1.201 g/cm2. This corresponds to a T score 1.5of and Z score of 2.7. Mean femoral neck bone mineral density measures 1.176 g/cm2. This corresponds to a T score of 1.3 and Z score of 2.5. XR/XR DEXA axial skeleton* [id number] IMPRESSION: Normal bone mineralization. Patient's FRAX calculated 10 year probability for major osteoporotic fracture i s 8.6% and osteoporotic hip fracture is 0.3%.
== END 2025-05-24 14:07 | disposition home or self-care (01) ==
LOC: RAD 14:07
PROVIDERS: PCP Nurse Practitioner Family; Visit Provider Nurse Practitioner Family
DX: Z12.31 Encounter for screening mammogram for malignant neoplasm of breast (principal); Z13.820 Encounter for screening for osteoporosis; M81.0 Age-related osteoporosis without current pathological fracture; R92.333 Mammographic heterogeneous density, bilateral breasts
CPT/HCPCS: 77063; 77067; 77080

== ENCOUNTER → 2025-09-09 08:59 | Outpatient (BNVA) | payer MEDICARE, OTHER, SELFPAY | PROVIDERS: PCP Nurse Practitioner Family; Visit Provider Nurse Practitioner Family | DX: B35.1 Tinea unguium (principal); D23.72 Other benign neoplasm of skin of left lower limb, including hip; L81.4 Other melanin hyperpigmentation; D18.01 Hemangioma of skin and subcutaneous tissue; Z08 Encounter for follow-up examination after completed treatment for malignant neoplasm; Z85.828 Personal history of other malignant neoplasm of skin; L57.0 Actinic keratosis | CPT/HCPCS: 17000; 99214 ==